=== PATIENT | male | born 1970 | race Two or more races ===

== ENCOUNTER 2016-09-19 19:30 | Emergency (ER) | payer MEDICAID ==
[~2016-09-19] VITALS: Ht 182.9 cm; Wt 81.0 kg
[2016-09-19 19:56] VITALS: BP 132/82
== END 2016-09-19 21:14 | disposition home or self-care (01) ==
LOC: ER 19:31
DX: T59.3X3A Toxic effect of lacrimogenic gas, assault, initial encounter (principal); S05.8X1A Other injuries of right eye and orbit, initial encounter; H53.8 Other visual disturbances; S09.8XXA Other specified injuries of head, initial encounter; Y92.69 Other specified industrial and construction area as the place of occurrence of the external cause; Y93.89 Activity, other specified; Y99.0 Civilian activity done for income or pay; I10 Essential (primary) hypertension; F17.210 Nicotine dependence, cigarettes, uncomplicated
CPT/HCPCS: 99283; J7040